=== PATIENT | female | born 1975 | race Asian ===

== ENCOUNTER 2017-03-31 11:04 | Emergency (ER) | payer OTHER ==
[2017-03-31] MEDS ORDERED: DEXAMETHASONE 10 MG/ML VIAL PO STA (11:52)
[2017-03-31] MEDS ORDERED: FAMOTIDINE 20 MG TABLET PO STA (11:52)
[2017-03-31] MEDS ORDERED: CETIRIZINE 10 MG TABLET PO STA (11:53)
[2017-03-31] MEDS ORDERED: CETIRIZINE 10 MG TABLET ONE (12:02)
[2017-03-31] MEDS ORDERED: DEXAMETHASONE 10 MG/ML VIAL ONE (12:02)
[2017-03-31] MEDS ORDERED: FAMOTIDINE 20 MG TABLET ONE (12:02)
[2017-03-31] MEDS ORDERED: CHERRY SYRUP 10 ML UDC PO ONE (12:03)
--- NOTE | 2017-03-31 12:08 | ED Physician Documentation ---
History of Present Illness - Stated complaint Stated Complaint: SWOLLEN TONGUE,RASH - Chief complaint Chief Complaint: Allergic Rx - Additonal information Additional information: hx from pt 41 y/o f denies preg but breast feeding has had a papular rash to back of neck axt and back for a few days - cause unknown - no bites, no known allergens, no contacts with same etc and then today tongue swelling no SOA no lip or uvula swelling hx allergies to codeine penicillins and seafood but no exposure to any of those has not taken any meds for these sx Review of Systems Constitutional: denies: Fever Throat: reports: Other (swollen tongue) Respiratory: denies: Dyspnea GI: denies: Vomiting : denies: Now EGA Skin: reports: Rash PD PAST MEDICAL HISTORY - Past Medical History Cardiovascular: None Respiratory: Asthma, COPD, Pneumonia, Other Neuro: None Endocrine/Autoimmune: HyPOthyroidism GI: Other 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 : None HEENT: None Psych: None Musculoskeletal: None Derm: None - Past Surgical History Past Surgical History: Yes /ENTERTAINMENT LAWYER: LEEP (Cervical surgery) - Present Medications Home Medications: Ambulatory Orders Medication Instructions Recorded Confirmed Albuterol 2.5 mg INH ONCE 05/03/15 03/31/17 EPINEPHrine [Epipen] 1 mg IM DAILY 05/03/15 03/31/17 Levothyroxine [Synthroid] 112 mcg PO DAILY 05/03/15 03/31/17 Cetirizine [ZyrTEC] 10 mg PO DAILY PRN #3 tablet 03/31/17 predniSONE [Deltasone] 60 mg PO DAILY 3 Days tablet 03/31/17 raNITIdine [Zantac] 150 mg PO BID #12 tablet 03/31/17 - Allergies Allergies/Adverse Reactions: Allergies Allergy/AdvReac Type Severity Reaction Status Date / Time amoxicillin Allergy Hives Verified 03/31/17 11:23 shellfish derived Allergy Anaphylaxis Verified 03/31/17 11:23 codeine AdvReac Nausea Verified 03/31/17 11:23 - Social History Does the pt smoke?: No Smoking Status: Never smoker Does the pt drink ETOH?: No Does the pt have substance abuse?: No - Immunizations Immunizations are current?: Yes - POLST Patient has POLST: No PD ED PE NORMAL - Vitals Vital signs reviewed: Yes - HEENT HEENT: PERRL, Moist mucous membranes, Pharynx benign, Other (tongue swollen L > R no uvula or lip swelling) - Cardiac Cardiac: RRR - Respiratory Respiratory: No respiratory distress, Clear bilaterally - Abdomen Abdomen: Soft, Non tender - Derm Derm: Other (papular somehat excoriated scattered rash mostly to nape of neck smaller and fewer to ext and low back, no burrows, no web space lesions, no vesicles or uriticaria or petecchiae or purpura) - Neuro Neuro: Alert and oriented X 3 Results - Vitals Vitals: Vital Signs - 24 hr 03/31/17 03/31/17 11:08 13:43 Temperature 36.6 C 36.7 C Heart Rate 76 72 Respiratory 18 16 Rate Blood Pressure 105/71 106/79 O2 Saturation 100 98 Oxygen O2 Source Room air PD MEDICAL DECISION MAKING - ED course ED course: gave PO zyrtec decadron and pepcid after reviewing breast feeding safety with pt she improved allergen unknown still Departure - Departure Disposition: 01 Home, Self Care Clinical Impression: Angio-edema Qualifiers: Encounter type: initial encounter Qualified Code(s): T78.3XXA - Angioneurotic edema, initial encounter Condition: Good Instructions: ED Angioedema Follow-Up: Leonie Cox ARNP [Primary Care Provider] - Prescriptions: Cetirizine [ZyrTEC] 10 mg PO DAILY PRN #3 tablet PRN Reason: allergic reaction predniSONE [Deltasone] 60 mg PO DAILY 3 Days tablet raNITIdine [Zantac] 150 mg PO BID #12 tablet Comments: Please follow up with your PMD to discuss whether further allergy testing would be beneficial Take the medications prescribed for three more days until symptoms have resolved and to prevent re-occurrence Always have your epi pen available. Return if worse
[2017-03-31 13:44] VITALS: BP 106/79
== END 2017-03-31 14:35 | disposition home or self-care (01) ==
LOC: ED 11:04
DX: T78.3XXA Angioneurotic edema, initial encounter (principal); X58.XXXA Exposure to other specified factors, initial encounter; J44.9 Chronic obstructive pulmonary disease, unspecified; J45.909 Unspecified asthma, uncomplicated; E03.9 Hypothyroidism, unspecified
CPT/HCPCS: 99283; A9270

== ENCOUNTER 2017-04-25 09:03 | Emergency (ER) | payer OTHER ==
[2017-04-25] MEDS ORDERED: DEXAMETHASONE 10 MG/ML VIAL PO STA (10:22)
[2017-04-25] MEDS ORDERED: DEXAMETHASONE 10 MG/ML VIAL ONE (10:35)
[2017-04-25] MEDS ORDERED: CHERRY SYRUP 10 ML UDC PO ONE (10:35)
--- NOTE | 2017-04-25 10:45 | ED Physician Documentation ---
History of Present Illness - Stated complaint Stated Complaint: SWOLLEN TONGUE - Chief complaint Chief Complaint: Allergic Rx - History obtained from History obtained from: Patient, Family - History of Present Illness Timing: Last night - Additonal information Additional information: 41-year-old female is been having an issue with swelling of her tongue that has previously been related to shellfish and recently she has not found a culprit for the swelling. Last night she had pork potatoes and green beans prepared in the usual fashion with nothing new in her diet that she has not had for years. She developed some swelling of her tongue took some Benadryl last night. Today she has continued swelling of the tongue and she is come to the emergency department for evaluation. She has been into see her doctor in follow-up and allergy testing is to be done soon. Review of Systems Constitutional: denies: Fever, Chills, Sweats Eyes: denies: Decreased vision Ears: denies: Ear pain Nose: denies: Rhinorrhea / runny nose, Congestion Throat: reports: Other (Swelling of the tongue). 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: LEEP (Cervical surgery) - Present Medications Home Medications: Ambulatory Orders Medication Instructions Recorded Confirmed Albuterol 2.5 mg INH ONCE 05/03/15 04/25/17 Levothyroxine [Synthroid] 112 mcg PO DAILY 05/03/15 04/25/17 - Allergies Allergies/Adverse Reactions: Allergies Allergy/AdvReac Type Severity Reaction Status Date / Time amoxicillin Allergy Hives Verified 04/25/17 09:55 shellfish derived Allergy Anaphylaxis Verified 04/25/17 09:55 codeine AdvReac Nausea Verified 04/25/17 09:55 - Social History Does the pt smoke?: No Smoking Status: Never smoker Does the pt drink ETOH?: No Does the pt have substance abuse?: No - Immunizations Immunizations are current?: Yes - POLST Patient has POLST: No PD ED PE NORMAL - Vitals Vital signs reviewed: Yes (Normal) - General General: No acute distress, Well developed/nourished - HEENT HEENT: Atraumatic, PERRL, EOMI, Ears normal, Moist mucous membranes, Pharynx benign, Other (There is general swelling of the tongue that is mild but definitely present. There is no swelling of the uvula and no swelling of the lips.) - Neck Neck: Supple, no meningeal sign, No bony TTP - Cardiac Cardiac: RRR, No murmur - Respiratory Respiratory: No respiratory distress, Clear bilaterally - Abdomen Abdomen: Soft, Non tender - Derm Derm: Normal color, Warm and dry, No rash - Extremities Extremities: No deformity, No edema - Neuro Neuro: No motor deficit, No sensory deficit - Psych Psych: Normal mood, Normal affect Results - Vitals Vitals: Vital Signs - 24 hr 04/25/17 09:07 Temperature 36.4 C L Heart Rate 90 Respiratory 18 Rate Blood Pressure 101/72 O2 Saturation 97 Oxygen O2 Source Room air PD MEDICAL DECISION MAKING - ED course Complexity details: reviewed old records, reviewed results, re-evaluated patient , considered differential, d/w patient, d/w family ED course: 41-year-old female with swelling of her tongue again has taken some Advil last night she continues to have swelling this morning. She is administered dexamethasone 10 mg orally here. I will recommend that she be on an antihistamine for the next 2 days. I have also asked her to follow-up with [facility]. Departure - Departure Disposition: 01 Home, Self Care Clinical Impression: Angio-edema Qualifiers: Encounter type: subsequent encounter Qualified Code(s): T78.3XXD - Angioneurotic edema, subsequent encounter Condition: Stable Instructions: ED Angioedema, C1 inhibitor Human injection [angioedema treatment ] Follow-Up: Leonie Cox ARNP [Primary Care Provider] - [facility] [Provider Group] Comments: Today it appears you have swelling of her tongue for no specific reason. This angioedema can be an acquired phenomena and follow-up with a specialist as indicated. Please follow-up with the [facility]. For the next 2 days take Fariba or Zyrtec on a regular basis.
[2017-04-25 10:57] VITALS: BP 102/63
== END 2017-04-25 10:58 | disposition home or self-care (01) ==
LOC: ED 09:03
DX: T78.3XXA Angioneurotic edema, initial encounter (principal); J44.9 Chronic obstructive pulmonary disease, unspecified; J45.909 Unspecified asthma, uncomplicated; E03.9 Hypothyroidism, unspecified
CPT/HCPCS: 99283; A9270